=== PATIENT | female | born 1990 | race Caucasian/White ===

== ENCOUNTER 2018-01-29 13:13 | Observation (INO) | payer BC ==
[~2018-01-29] VITALS: Ht 175.3 cm; Wt 64.1 kg
[~2018-01-29 13:13] MED LIST: PREN1TAB56 PO
[2018-01-29] MEDS ORDERED: TERBUTALINE 1 MG/ML, 1ML SQ ONE (14:00)
[2018-01-29] MEDS ORDERED: TERBUTALINE 1 MG/ML, 1ML ONE (14:03)
[2018-01-29] MEDS ORDERED: PLEASE ENTER HEIGHT AND WEIGHT MC SCH (14:30)
[2018-01-29 14:42] LABS: MICROSCOPIC INDICATED
[2018-01-29] MEDS: LACTATED RINGERS 1,000 ML IV SCH ×2 (15:48→16:21)
[2018-01-29] MEDS ORDERED: LACTATED RINGERS 1,000 ML IVBOLUS ONE (16:00)
[2018-01-29 17:01] VITALS: BP 119/72
[2018-01-29 17:14] VITALS: BP 119/72
[2018-01-29] MEDS ORDERED: NIFE10CA PO (19:24)
== END 2018-01-29 19:35 | disposition home or self-care (01) ==
LOC: LDOP 13:13 → LDIP 16:26
PROVIDERS: ADMIT Obstetrics & Gynecology; ATTEND Obstetrics & Gynecology
DX: O26.893 Other specified pregnancy related conditions, third trimester (principal); R10.9 Unspecified abdominal pain; Z3A.32 32 weeks gestation of pregnancy
CPT/HCPCS: 36415; 59025; 76819; 81001; 82731; 87086; 96372; G0378; J3105; J7120

== ENCOUNTER 2018-02-28 03:54 | Inpatient (IN) | payer BC ==
[~2018-02-28] VITALS: Ht 175.3 cm; Wt 64.1 kg
[~2018-02-28 03:54] MED LIST changes: +NIFE10CA PO
[2018-02-28] MEDS ORDERED: NEWBORN KIT ONE (04:05)
[2018-02-28] MEDS ORDERED: OXYTOCIN 30U/ 0.9% NaCL 500ML 500 ML ONE ×2 (04:06→07:04)
[2018-02-28] MEDS ORDERED: FENTANYL PF 100 MCG/2ML ONE (04:12)
[2018-02-28] MEDS ORDERED: LACTATED RINGERS 1,000 ML IV SCH (04:14)
[2018-02-28] MEDS ORDERED: OXYTOCIN 30U/ 0.9% NaCL 500ML 500 ML IV ONE (04:14)
[2018-02-28] MEDS ORDERED: D5%-LACTATED RINGERS 1,000 ML IV SCH (04:14)
[2018-02-28] MEDS ORDERED: TERBUTALINE 1 MG/ML, 1ML IVPush PRN (04:30)
[2018-02-28] MEDS ORDERED: TERBUTALINE 1 MG/ML, 1ML SQ PRN (04:30)
[2018-02-28] MEDS ORDERED: METOCLOPRAMIDE 5 MG/ML, 2ML IVPush PRN (04:30)
[2018-02-28] MEDS ORDERED: FENTANYL PF 100 MCG/2ML IV PRN (04:30)
[2018-02-28] MEDS ORDERED: PLEASE ENTER HEIGHT AND WEIGHT MC SCH (04:30)
[2018-02-28] MEDS ORDERED: SODIUM CITRATE/CITRIC ACID 30 ML UDC PO PRN (04:30)
[2018-02-28] MEDS ORDERED: FENTANYL PF 100 MCG/2ML IVPush PRN (04:30)
[2018-02-28] MEDS ORDERED: ONDANSETRON 2MG/ML, 2ML IVPush PRN (04:30)
[2018-02-28] MEDS ORDERED: CALCIUM CARBONATE 500 MG TAB.CHEW PO PRN (04:30)
[2018-02-28 05:11] LABS: BASOPHILS # (AUTO) 0.06 x10^3/uL (0-0.1); BASOPHILS % (AUTO) 1 % (0-1); EOSINOPHILS # (AUTO) 0.09 x10^3/uL (0-0.4); EOSINOPHILS % (AUTO) 1 % (1-7); LYMPHOCYTES # (AUTO) 1.79 x10^3/uL (1-3.4); LYMPHOCYTES % (AUTO) 18 % (22-44); MD NO; MEAN CORPUSCULAR HEMOGLOBIN 28.3 pg (27.0-34.8); MEAN CORPUSCULAR HGB CONC 33.2 g/dL (32.4-35.8); MEAN CORPUSCULAR VOLUME 85.4 fL (80-100); MEAN PLATELET VOLUME 6.7 fL (7.4-10.4); MONOCYTES # (AUTO) 0.62 x10^3/uL (0.2-0.8); MONOCYTES % (AUTO) 6 % (2-9); NEUTROPHILS # (AUTO) 7.34 x10^3/uL (1.8-6.8); NEUTROPHILS % (AUTO) 74 % (42-75); PLATELET COUNT 214 x10^3/uL (130-400); RED BLOOD COUNT 3.91 x10^6/uL (3.82-5.3); RED CELL DISTRIBUTION WIDTH 14.7 % (9.6-15.2)
[2018-02-28] MEDS ORDERED: OXYTOCIN 30U/ 0.9% NaCL 500ML 500 ML IV SCH (06:04)
[2018-02-28] MEDS ORDERED: IBUPROFEN 600 MG TABLET ONE (06:11)
[2018-02-28] MEDS: IBUPROFEN 600 MG TABLET PO PRN ×2 (06:13→20:36)
[2018-02-28] MEDS ORDERED: METHYLERGONOVINE 0.2 MG/ML IM PRN (06:30)
[2018-02-28] MEDS ORDERED: METOCLOPRAMIDE 5 MG/ML, 2ML IV PRN (06:30)
[2018-02-28] MEDS ORDERED: BISACODYL 10 MG SUPP PR PRN (06:30)
[2018-02-28] MEDS ORDERED: OXYcodone/APAP 5/325MG TABLET PO PRN ×2 (06:30)
[2018-02-28] MEDS ORDERED: IBUPROFEN 800 MG TABLET PO PRN (06:30)
[2018-02-28] MEDS ORDERED: DOCUSATE 100 MG CAPSULE PO PRN (06:30)
[2018-02-28] MEDS ORDERED: GLYCERIN ADULT SUPP PR PRN (06:30)
[2018-02-28] MEDS ORDERED: ACETAMINOPHEN 325 MG TABLET PO PRN (06:30)
[2018-02-28] MEDS ORDERED: CARBOPROST TROMETHAMINE 250 MCG/ML, 1ML IM PRN (06:30)
[2018-02-28] MEDS ORDERED: ONDANSETRON 2MG/ML, 2ML IV PRN (06:30)
[2018-02-28] MEDS ORDERED: MISOPROSTOL 200 MCG TABLET PR PRN (06:30)
[2018-02-28 08:20] VITALS: BP 107/68
[2018-02-28] MEDS ORDERED: PRENATAL VIT/IRON/FA 1 EACH TABLET PO SCH (09:00)
[2018-02-28 13:00] VITALS: BP 111/68
[2018-02-28 13:44] LABS: BASOPHILS # (AUTO) 0.04 x10^3/uL (0-0.1); BASOPHILS % (AUTO) 0 % (0-1); EOSINOPHILS # (AUTO) 0.11 x10^3/uL (0-0.4); EOSINOPHILS % (AUTO) 1 % (1-7); LYMPHOCYTES # (AUTO) 2.05 x10^3/uL (1-3.4); LYMPHOCYTES % (AUTO) 19 % (22-44); MD NO; MEAN CORPUSCULAR HEMOGLOBIN 29.4 pg (27.0-34.8); MEAN CORPUSCULAR HGB CONC 33.9 g/dL (32.4-35.8); MEAN CORPUSCULAR VOLUME 86.6 fL (80-100); MEAN PLATELET VOLUME 6.4 fL (7.4-10.4); MONOCYTES # (AUTO) 0.92 x10^3/uL (0.2-0.8); MONOCYTES % (AUTO) 9 % (2-9); NEUTROPHILS % (AUTO) 71 % (42-75); PLATELET COUNT 200 x10^3/uL (130-400); RED BLOOD COUNT 3.36 x10^6/uL (3.82-5.3); RED CELL DISTRIBUTION WIDTH 14.4 % (9.6-15.2)
[2018-02-28 16:45] VITALS: BP 98/62
[2018-02-28 20:30] VITALS: BP 107/69
[2018-03-01] VITALS: BP 106/62
[2018-03-01] MEDS: IBUPROFEN 600 MG TABLET PO PRN ×2 (02:51→09:18)
[2018-03-01 04:00] VITALS: BP 100/58
[2018-03-01 09:20] VITALS: BP 106/66
[2018-03-01] MEDS ORDERED: IBUP-1222 PO (10:14)
== END 2018-03-01 11:40 | disposition home or self-care (01) | DRG 775 ==
LOC: LDOP 03:54 → LDIP 04:06 → 2NW 08:00
PROVIDERS: ADMIT Obstetrics & Gynecology; ATTEND Obstetrics & Gynecology
PROC: 10E0XZZ Delivery of Products of Conception, External Approach (ICD-10-PCS; principal; 2018-02-28)
PROC: 10907ZC Drainage of Amniotic Fluid, Therapeutic from Products of Conception, Via Natural or Artificial Opening (ICD-10-PCS; 2018-02-28)
DX: O60.14X0 Preterm labor third trimester with preterm delivery third trimester, not applicable or unspecified (principal); O24.420 Gestational diabetes mellitus in childbirth, diet controlled; O69.81X0 Labor and delivery complicated by cord around neck, without compression, not applicable or unspecified; Z3A.36 36 weeks gestation of pregnancy; Z37.0 Single live birth; Z80.3 Family history of malignant neoplasm of breast; Z82.3 Family history of stroke; Z82.49 Family history of ischemic heart disease and other diseases of the circulatory system; Z83.3 Family history of diabetes mellitus
CPT/HCPCS: 36415; 82947; 85025; 86850; 86900; G0378; J3010; J2590; J7120

== ENCOUNTER 2020-11-04 07:14 | Outpatient (CLI) | payer OTHER ==
[~2020-11-04] VITALS: Ht 175.3 cm; Wt 63.6 kg
[~2020-11-04 07:14] MED LIST changes: +IBUP-1222 PO
[2020-11-04 07:42] VITALS: BP 118/68
[2020-11-04 08:42] LABS: MICROSCOPIC INDICATED
[2020-11-04] MEDS ORDERED: TERBUTALINE 1 MG/ML, 1ML ONE (09:08)
[2020-11-04] MEDS ORDERED: TERBUTALINE 1 MG/ML, 1ML SQ ONE (09:30)
== END 2020-11-04 10:40 | disposition home or self-care (01) ==
LOC: LDOP 07:14
PROVIDERS: ATTEND Obstetrics & Gynecology
DX: O62.9 Abnormality of forces of labor, unspecified (principal); R10.9 Unspecified abdominal pain; Z3A.00 Weeks of gestation of pregnancy not specified
CPT/HCPCS: 59025; 81001; 87086; 96372; J3105

== ENCOUNTER 2020-12-16 11:45 | Outpatient (CLI) | payer OTHER ==
[~2020-12-16] VITALS: Ht 175.3 cm; Wt 67.0 kg
[2020-12-16 12:56] LABS: MICROSCOPIC INDICATED
== END 2020-12-16 13:48 | disposition home or self-care (01) ==
LOC: LDOP 11:45
PROVIDERS: ATTEND Obstetrics & Gynecology
DX: O21.2 Late vomiting of pregnancy (principal); Z3A.34 34 weeks gestation of pregnancy
CPT/HCPCS: 59025; 81001; 82962; 87086

== ENCOUNTER 2021-01-04 04:53 | Inpatient (IN) | payer OTHER ==
[~2021-01-04] VITALS: Ht 175.3 cm; Wt 68.2 kg
[2021-01-04] MEDS ORDERED: MISOPROSTOL 200 MCG TABLET ONE (05:27)
[2021-01-04] MEDS ORDERED: NEWBORN KIT ONE (05:27)
[2021-01-04] MEDS ORDERED: LIDOCAINE 1%, 20ML ONE (05:27)
[2021-01-04] MEDS ORDERED: OXYTOCIN 30U/ 0.9% NaCL 500ML 500 ML ONE (05:27)
[2021-01-04] MEDS ORDERED: FENTANYL PF 100 MCG/2ML ONE (05:28)
[2021-01-04] MEDS ORDERED: CALCIUM CARBONATE 500 MG TAB.CHEW PO PRN (05:30)
[2021-01-04] MEDS ORDERED: TERBUTALINE 1 MG/ML, 1ML SQ PRN (05:30)
[2021-01-04] MEDS ORDERED: D5%-LACTATED RINGERS 1,000 ML IV SCH (05:30)
[2021-01-04] MEDS ORDERED: ONDANSETRON 2MG/ML, 2ML IVPush PRN (05:30)
[2021-01-04] MEDS ORDERED: FENTANYL PF 100 MCG/2ML IV PRN (05:30)
[2021-01-04] MEDS ORDERED: LACTATED RINGERS 1,000 ML IV SCH (05:30)
[2021-01-04] MEDS ORDERED: OXYTOCIN 30U/ 0.9% NaCL 500ML 500 ML IV ONE (05:30)
[2021-01-04] MEDS ORDERED: TERBUTALINE 1 MG/ML, 1ML IVPush PRN (05:30)
[2021-01-04] MEDS: FENTANYL PF 100 MCG/2ML IVPush PRN ×2 (05:32→06:39)
[2021-01-04 06:10] LABS: BASOPHILS % (AUTO) 0 % (0-1); EOSINOPHILS % (AUTO) 1 % (1-7); LYMPHOCYTES % (AUTO) 29 % (22-44); MEAN CORPUSCULAR HEMOGLOBIN 31.9 pg (27.0-34.8); MEAN CORPUSCULAR HGB CONC 33.8 g/dL (32.4-35.8); MEAN PLATELET VOLUME 6.8 fL (7.4-10.4); MONOCYTES % (AUTO) 8 % (2-9); NEUTROPHILS % (AUTO) 62 % (42-75); PLATELET COUNT 144 x10^3/uL (130-400); RED BLOOD COUNT 4.08 x10^6/uL (3.82-5.3); RED CELL DISTRIBUTION WIDTH 15.5 % (9.6-15.2)
[2021-01-04] MEDS ORDERED: PLEASE ENTER HEIGHT AND WEIGHT MC SCH (07:00)
[2021-01-04] MEDS ORDERED: ONDANSETRON 2MG/ML, 2ML IV PRN (08:00)
[2021-01-04] MEDS ORDERED: MISOPROSTOL 200 MCG TABLET PR PRN (08:00)
[2021-01-04] MEDS ORDERED: SIMETHICONE 80 MG CHEW TAB PO PRN (08:00)
[2021-01-04] MEDS ORDERED: DOCUSATE 100 MG CAPSULE PO PRN (08:00)
[2021-01-04] MEDS ORDERED: OXYcodone/APAP 5/325MG TABLET PO PRN (08:00)
[2021-01-04] MEDS ORDERED: ACETAMINOPHEN 325 MG TABLET PO PRN (08:00)
[2021-01-04] MEDS ORDERED: IBUPROFEN 600 MG TABLET PO PRN (08:00)
[2021-01-04] MEDS ORDERED: OXYcodone IR 5MG TABLET PO PRN (08:00)
[2021-01-04] MEDS: OXYTOCIN 30U/ 0.9% NaCL 500ML 500 ML IV SCH (08:20)
[2021-01-04] MEDS ORDERED: PRENATAL VIT/IRON/FA 1 EACH TABLET PO SCH (09:00)
[2021-01-04 10:40] VITALS: BP 106/68
[2021-01-04 14:43] VITALS: BP 108/66
[2021-01-04 17:22] LABS: BASOPHILS % (AUTO) 0 % (0-1); EOSINOPHILS % (AUTO) 1 % (1-7); LYMPHOCYTES % (AUTO) 19 % (22-44); MEAN CORPUSCULAR HEMOGLOBIN 32.1 pg (27.0-34.8); MONOCYTES % (AUTO) 7 % (2-9); NEUTROPHILS % (AUTO) 74 % (42-75); PLATELET COUNT 148 x10^3/uL (130-400); RED BLOOD COUNT 4.13 x10^6/uL (3.82-5.3); RED CELL DISTRIBUTION WIDTH 15.4 % (9.6-15.2)
[2021-01-04 18:33] VITALS: BP 110/65
[2021-01-04 19:50] VITALS: BP 106/67
[2021-01-05 00:30] VITALS: BP 98/51
[2021-01-05] MEDS: OXYTOCIN 30U/ 0.9% NaCL 500ML 500 ML IV SCH (04:00)
[2021-01-05 04:50] VITALS: BP 103/62
[2021-01-05] MEDS ORDERED: IBUP-1222 PO (05:44)
[2021-01-05 07:55] VITALS: BP 109/74
== END 2021-01-05 13:30 | disposition home or self-care (01) | DRG 807 ==
LOC: LDOP 04:53 → UNDOADMIN 05:28 → EDIP 05:28 → LDIP 05:28 → 2NW 10:06
PROVIDERS: ADMIT Obstetrics & Gynecology; ATTEND Obstetrics & Gynecology
PROC: 10E0XZZ Delivery of Products of Conception, External Approach (ICD-10-PCS; principal; 2021-01-04)
DX: O76 Abnormality in fetal heart rate and rhythm complicating labor and delivery (principal); Z37.0 Single live birth; Z3A.37 37 weeks gestation of pregnancy; Z83.3 Family history of diabetes mellitus; Z87.410 Personal history of cervical dysplasia; Z20.822 Contact with and (suspected) exposure to COVID-19; Z78.9 Other specified health status; O24.429 Gestational diabetes mellitus in childbirth, unspecified control
CPT/HCPCS: 82962; 85025; 86592; 86850; 86900; 87635; G0378; J3010; J2590; J7120